=== PATIENT | male | born 1935 | race Caucasian/White ===

== ENCOUNTER 2024-05-26 12:37 | Outpatient (CLI) | payer MEDICARE, BC, SELFPAY | END 2024-05-26 12:38 | disposition home or self-care (01) | PROVIDERS: PCP Student in an Organized Health Care Education/Training Program; Visit Provider Nurse Practitioner Family | DX: E11.622 Type 2 diabetes mellitus with other skin ulcer (principal); L97.328 Non-pressure chronic ulcer of left ankle with other specified severity; F03.A18 Unspecified dementia, mild, with other behavioral disturbance; Z79.4 Long term (current) use of insulin; Z79.84 Long term (current) use of oral hypoglycemic drugs | CPT/HCPCS: 87070; 87186; 97597; G0463 ==